=== PATIENT | male | born 1965 | race Caucasian/White ===

== ENCOUNTER 2016-12-17 16:57 | Emergency (ER) | payer BC ==
[~2016-12-17] VITALS: Ht 180.3 cm; Wt 90.0 kg
[~2016-12-17 16:57] MED LIST: ALEVE220 MG PO; AMLODIPINE10 MG PO; ASPIRIN 32325 MG/TAB PO; ASPIRIN 81M81 MG/TA2 PO; ASPIRIN E.C. 8181 MG PO; CRESTOR5 MG PO; DEXILANT30 MG PO; FLAXSEED OIL1 CAP PO; FLEXERIL 1010 MG/TAB PO; GEMFIBROZIL600 MG PO; LOPID 600M600 MG/TAB PO; LORTAB 5/500 501 TAB PO; NO HOME MEDICATIONS; NORCO 325 MG-51 TAB PO; NORCO 325 MG-7.1 TAB PO; PERCOCET 325 MG1 TA2 PO; PRILOSEC 20MG20 MG PO; PRINIVIL20 MG PO; PROMETHAZINE12.5 M5 PO; SEPTRA DS 8001 TAB PO; TRICOR 48MG48 MG PO; TRICOR145 MG PO; TYLENOL ALLERGY1 TA1 PO; ULTRAM 50MG TAB50 MG PO; ZESTRIL40 MG PO; ZOFRAN 4MG T4 MG/TAB PO; ZYRTEC 10MG10 MG PO
[2016-12-17 17:57] VITALS: BP 161/94; PULSE 91; TEMP 97.9
== END 2016-12-17 18:00 | disposition home or self-care (01) ==
LOC: COL.ER 16:57
DX: M25.562 Pain in left knee (principal); I10 Essential (primary) hypertension

== ENCOUNTER 2017-10-01 16:31 | Emergency (ER) | payer BC ==
[~2017-10-01] VITALS: Ht 180.3 cm; Wt 93.6 kg
[2017-10-01 16:43] VITALS: BP 169/95; PULSE 82; TEMP 98.1
[2017-10-01] MEDS ORDERED: COZAAR100 MG PO (16:45)
[2017-10-01] MEDS ORDERED: PEN-VEE K500 MG PO (18:35)
== END 2017-10-01 19:05 | disposition home or self-care (01) ==
LOC: COL.ER 16:31
DX: K02.9 Dental caries, unspecified (principal); R68.84 Jaw pain; I10 Essential (primary) hypertension

== ENCOUNTER 2018-02-18 13:25 | Emergency (ER) | payer BC ==
[~2018-02-18] VITALS: Ht 180.3 cm; Wt 95.5 kg
[~2018-02-18 13:25] MED LIST changes: +COZAAR100 MG PO; +PEN-VEE K500 MG PO
[2018-02-18 13:52] VITALS: BP 193/108; PULSE 76; TEMP 97.8
== END 2018-02-18 13:59 | disposition home or self-care (01) ==
LOC: COL.ER 13:25
DX: G89.29 Other chronic pain (principal); M25.511 Pain in right shoulder; I10 Essential (primary) hypertension; Z90.49 Acquired absence of other specified parts of digestive tract; Z90.89 Acquired absence of other organs; Z98.890 Other specified postprocedural states

== ENCOUNTER 2018-04-21 18:40 | Emergency (ER) | payer BC ==
[~2018-04-21] VITALS: Ht 180.3 cm; Wt 100.0 kg
[2018-04-21 18:43] VITALS: BP 178/117; TEMP 97.5
[2018-04-21] MEDS ORDERED: VENTOLIN0.09 MG IH (19:34)
[2018-04-21] MEDS ORDERED: PREDNISONE20 MG PO (20:42)
[2018-04-21] MEDS ORDERED: VOLTAREN 75 DR75 MG PO (20:42)
[2018-04-21 21:01] VITALS: PULSE 78
== END 2018-04-21 21:01 | disposition home or self-care (01) ==
LOC: COL.ER 18:40
DX: S46.911A Strain of unspecified muscle, fascia and tendon at shoulder and upper arm level, right arm, initial encounter (principal); X58.XXXA Exposure to other specified factors, initial encounter
CPT/HCPCS: J1885; J7512

== ENCOUNTER → 2018-05-16 | Outpatient (REF) ==
[~2018-05-16] MED LIST changes: +PREDNISONE20 MG PO; +VENTOLIN0.09 MG IH; +VOLTAREN 75 DR75 MG PO
== END ==
LOC: ZLAB.WCH 08:41
DX: Z01.89 Encounter for other specified special examinations (principal)

== ENCOUNTER 2018-05-20 14:47 | Emergency (ER) | payer BC ==
[~2018-05-20] VITALS: Ht 180.3 cm; Wt 95.5 kg
[2018-05-20 14:53] VITALS: TEMP 97.6
[2018-05-20 15:26] LABS: BASO # 0.1 (0.0-0.2); BASO % 0.6 % (0.0-2.0); EOS # 0.2 (0.0-0.7); GRAN # 4.4 (1.4-6.5); GRAN % 53.5 % (42.2-75.2); HEMATOCRIT 44.7 % (42.0-52.0); HEMOGLOBIN 16.3 g/dl (13.5-18.0); LYMPH # 2.8 (1.2-3.4); LYMPH % 34.8 % (20.0-51.0); MEAN CELL VOLUME 86 fl (80.0-100.0); MEAN CORPUSCULAR HEMOGLOBIN 31 pg (27.0-31.0); MEAN CORPUSCULAR HGB CONC 37 g/dl (33.0-37.0); MONO # 0.7 (0.1-0.6); MONO % 8.7 % (1.7-9.3); PLATELET COUNT 329 K/mm3 (130-400); RED BLOOD COUNT 5.21 M/mm3 (4.20-5.60); REDCELL DISTRIBUTION WIDTH-CV 12.5 % (11.5-14.5)
[2018-05-20] MEDS ORDERED: NORCO 325 MG-101 TAB PO (15:31)
[2018-05-20 15:55] LABS: ALANINE AMINOTRANSFERASE 45 U/L (21-72); ALBUMIN 4.5 gm/dL (3.5-5.0); ALKALINE PHOSPHATASE 78 U/L (50-136); ANION GAP 10 mmol/L (7-16); AST,SGOT 36 U/L (15-37); BILIRUBIN,TOTAL 0.6 mg/dL (0.0-1.0); BLOOD UREA NITROGEN 6 mg/dL (9-20); C-REACTIVE PROTEIN 0.6 mg/dL (0.0-0.9); CALCIUM 10.3 mg/dL (8.4-10.2); CARBON DIOXIDE 25 mmol/L (22-30); CHLORIDE 101 mmol/L (98-107); CREATININE, serum 0.86 mg/dL (0.66-1.25); GLUCOSE 101 mg/dL (74-106); LIPASE 38 U/L (23-300); POTASSIUM 4.1 mmol/L (3.4-5.0); SODIUM 137 mmol/L (137-145)
[2018-05-20 16:12] LABS: TROPONIN-I < 0.012 ng/mL (0.000-0.034)
[2018-05-20 16:48] VITALS: BP 141/98; PULSE 61
== END 2018-05-20 16:49 | disposition home or self-care (01) ==
LOC: COL.ER 14:47
PROVIDERS: Physician Assistant
DX: K59.00 Constipation, unspecified (principal); I10 Essential (primary) hypertension; Z90.49 Acquired absence of other specified parts of digestive tract; Z90.89 Acquired absence of other organs; Z98.890 Other specified postprocedural states
CPT/HCPCS: C9113; J1170; J2405; J7030; Q9967

== ENCOUNTER 2018-12-03 09:22 | Emergency (ER) | payer BC, OTHER ==
[~2018-12-03] VITALS: Ht 180.3 cm; Wt 102.3 kg
[~2018-12-03 09:22] MED LIST changes: +NORCO 325 MG-101 TAB PO
[2018-12-03 09:27] VITALS: BP 162/95; TEMP 98
[2018-12-03] MEDS ORDERED: XANAX .25M0.25 MG/TA PO (10:09)
[2018-12-03] MEDS ORDERED: ULTRAM 50MG TAB50 MG PO ×2 (10:10→10:17)
[2018-12-03 10:25] VITALS: PULSE 71
== END 2018-12-03 10:25 | disposition home or self-care (01) ==
LOC: COL.ER 09:22
DX: R07.89 Other chest pain (principal); I10 Essential (primary) hypertension

== ENCOUNTER 2018-12-27 10:07 | Emergency (ER) | payer BC, OTHER ==
[~2018-12-27] VITALS: Ht 180.3 cm; Wt 100.0 kg
[~2018-12-27 10:07] MED LIST changes: +XANAX .25M0.25 MG/TA PO
[2018-12-27 10:10] VITALS: BP 170/93; TEMP 98.8
[2018-12-27] MEDS ORDERED: TYLENOL 500MG500 MG PO (10:36)
[2018-12-27] MEDS ORDERED: ROXICODONE 55 MG/TAB PO (10:37)
[2018-12-27] MEDS ORDERED: MOTRIN 800800 MG/TAB PO (10:37)
[2018-12-27 10:59] LABS: BASO # 0.1 (0.0-0.2); BASO % 0.5 % (0.0-2.0); EOS # 0.1 (0.0-0.7); EOS % 0.4 % (0-4.0); GRAN % 74.7 % (42.2-75.2); HEMATOCRIT 49.6 % (42.0-52.0); HEMOGLOBIN 17.3 g/dl (13.5-18.0); LYMPH % 15.3 % (20.0-51.0); MEAN CELL VOLUME 91 fl (80.0-100.0); MEAN CORPUSCULAR HEMOGLOBIN 32 pg (27.0-31.0); MEAN CORPUSCULAR HGB CONC 35 g/dl (33.0-37.0); MEAN PLATELET VOLUME 10.2 fl (7.4-10.4); MONO # 1.2 (0.1-0.6); MONO % 8.7 % (1.7-9.3); PLATELET COUNT 233 K/mm3 (130-400); RED BLOOD COUNT 5.47 M/mm3 (4.20-5.60); REDCELL DISTRIBUTION WIDTH-CV 12.3 % (11.5-14.5)
[2018-12-27 11:09] LABS: ALBUMIN 4.5 gm/dL (3.5-5.0); BILIRUBIN,TOTAL 1.1 mg/dL (0.0-1.0); CALCIUM 9.2 mg/dL (8.4-10.2); CREATININE, serum 0.87 mg/dL (0.66-1.25); POTASSIUM 4.1 mmol/L (3.4-5.0); TOTAL PROTEIN 8.2 gm/dL (6.4-8.2)
[2018-12-27] MEDS ORDERED: NORCOELIX PO (11:52)
[2018-12-27 12:27] VITALS: PULSE 74
== END 2018-12-27 12:29 | disposition home or self-care (01) ==
LOC: COL.ER 10:07
PROVIDERS: Emergency Medicine; Physician Assistant
DX: G89.18 Other acute postprocedural pain (principal); I10 Essential (primary) hypertension; F41.9 Anxiety disorder, unspecified; Z98.890 Other specified postprocedural states; Z90.89 Acquired absence of other organs
CPT/HCPCS: J7030

== ENCOUNTER 2019-01-14 11:04 | Emergency (ER) | payer BC ==
[~2019-01-14] VITALS: Ht 180.3 cm; Wt 90.9 kg
[~2019-01-14 11:04] MED LIST changes: +MOTRIN 800800 MG/TAB PO; +NORCOELIX PO; +ROXICODONE 55 MG/TAB PO; +TYLENOL 500MG500 MG PO
[2019-01-14] MEDS ORDERED: ANTIVERT 25MG25 MG PO (12:34)
[2019-01-14 13:27] VITALS: BP 145/99; PULSE 62
== END 2019-01-14 13:34 | disposition home or self-care (01) ==
LOC: COL.ER 11:04
DX: R42 Dizziness and giddiness (principal)

== ENCOUNTER 2019-12-26 16:08 | Emergency (ER) | payer BC ==
[~2019-12-26] VITALS: Ht 180.3 cm; Wt 101.4 kg
[~2019-12-26 16:08] MED LIST changes: +ANTIVERT 25MG25 MG PO; +LIPITOR 40MG TA40 MG PO; +PEPCID 20MG TAB20 MG PO
[2019-12-26 16:17] VITALS: TEMP 98.3
[2019-12-26 17:11] LABS: BASO % 0.3 % (0.0-2.0); EOS # 0.2 (0.0-0.7); EOS % 3.5 % (0-4.0); GRAN # 2.8 (1.4-6.5); GRAN % 45.9 % (42.2-75.2); HEMATOCRIT 45.9 % (42.0-52.0); HEMOGLOBIN 16.2 g/dl (13.5-18.0); LYMPH # 2.5 (1.2-3.4); LYMPH % 41.5 % (20.0-51.0); MEAN CELL VOLUME 90 fl (80.0-100.0); MEAN CORPUSCULAR HEMOGLOBIN 32 pg (27.0-31.0); MEAN CORPUSCULAR HGB CONC 35 g/dl (33.0-37.0); MEAN PLATELET VOLUME 10.6 fl (7.4-10.4); MONO # 0.5 (0.1-0.6); MONO % 8.5 % (1.7-9.3); PLATELET COUNT 200 K/mm3 (130-400); RED BLOOD COUNT 5.13 M/mm3 (4.20-5.60)
[2019-12-26 17:21] LABS: ALANINE AMINOTRANSFERASE 30 U/L (21-72); ALBUMIN 4.4 gm/dL (3.5-5.0); ALKALINE PHOSPHATASE 63 U/L (50-136); ANION GAP 9 mmol/L (7-16); AST,SGOT 26 U/L (15-37); BILIRUBIN,TOTAL 0.7 mg/dL (0.0-1.0); BLOOD UREA NITROGEN 11 mg/dL (9-20); C-REACTIVE PROTEIN 0.7 mg/dL (0.0-0.9); CALCIUM 8.9 mg/dL (8.4-10.2); CARBON DIOXIDE 24 mmol/L (22-30); CHLORIDE 106 mmol/L (98-107); CREATININE, serum 0.82 (0.66-1.25); GLUCOSE 100 mg/dL (74-106); LIPASE 53 U/L (23-300); SODIUM 139 mmol/L (137-145); TOTAL PROTEIN 7.7 gm/dL (6.4-8.2)
[2019-12-26 17:49] LABS: TROPONIN-I < 0.012 ng/mL (0.000-0.035)
[2019-12-26 18:23] LABS: COLLECTION METHOD CLEAN CATCH
[2019-12-26 18:29] LABS: MUCOUS Present /lpf; PH 6 (5-8); SQUAMOUS EPITHELIAL None Seen /hpf; URINE APPEARANCE Clear; URINE BACTERIA None Seen /hpf; URINE BILIRUBIN Negative (NEGATIVE); URINE BLOOD Negative (NEGATIVE); URINE COLOR Yellow; URINE GLUCOSE Negative (NEGATIVE); URINE KETONE Negative (NEGATIVE); URINE LEUKOCYTE ESTERASE Negative (NEGATIVE); URINE NITRATE Negative (NEGATIVE); URINE PROTEIN(semi-quant) Negative (NEGATIVE); URINE RBC 0-2 /hpf; URINE UROBILINOGEN Negative (NEGATIVE)
[2019-12-26 19:33] VITALS: BP 133/103; PULSE 62
== END 2019-12-26 19:33 | disposition home or self-care (01) ==
LOC: COL.ER 16:08
PROVIDERS: Emergency Medicine
DX: R10.31 Right lower quadrant pain (principal); R10.11 Right upper quadrant pain; I10 Essential (primary) hypertension; E78.5 Hyperlipidemia, unspecified; F41.9 Anxiety disorder, unspecified; Z90.89 Acquired absence of other organs; Z79.82 Long term (current) use of aspirin
CPT/HCPCS: J2405; J3010; J7030; Q9967

== ENCOUNTER 2020-01-03 14:45 | Outpatient (RCR) | payer BC | END 2020-03-12 | disposition home or self-care (01) | LOC: MKS.ESL.PT | DX: H81.10 Benign paroxysmal vertigo, unspecified ear (principal); M54.5 Low back pain | CPT/HCPCS: G0283-GP ==

== ENCOUNTER → 2020-02-26 | Outpatient (CLI) | payer BC ==
[2020-02-26 19:26] LABS: ANION GAP 8 mmol/L (7-16); BLOOD UREA NITROGEN 7 mg/dL (9-20); CALCIUM 9.7 mg/dL (8.4-10.2); CARBON DIOXIDE 23 mmol/L (22-30); CHLORIDE 105 mmol/L (98-107); CREATININE, serum 0.83 (0.66-1.25); GLUCOSE 109 mg/dL (74-106); POTASSIUM 4.4 mmol/L (3.4-5.0); SODIUM 136 mmol/L (137-145)
[2020-02-26 19:39] LABS: TROPONIN-I < 0.012 ng/mL (0.000-0.035)
[2020-02-26 19:57] LABS: THYROID STIMULATING HORMONE 0.929 uIU/mL (0.465-4.680)
== END ==
LOC: ZCOL.LAB 18:25
PROVIDERS: Internal Medicine Interventional Cardiology
DX: R06.02 Shortness of breath (principal)

== ENCOUNTER → 2020-02-27 | Outpatient (CLI) | payer BC ==
[2020-02-27 11:31] LABS: HEMATOCRIT 48.4 % (42.0-52.0); HEMOGLOBIN 17.2 g/dl (13.5-18.0); MEAN CELL VOLUME 89 fl (80.0-100.0); MEAN CORPUSCULAR HEMOGLOBIN 32 pg (27.0-31.0); MEAN CORPUSCULAR HGB CONC 36 g/dl (33.0-37.0); PLATELET COUNT 264 K/mm3 (130-400); RED BLOOD COUNT 5.42 M/mm3 (4.20-5.60); REDCELL DISTRIBUTION WIDTH-CV 12.3 % (11.5-14.5)
== END ==
LOC: COL.LAB 11:04
PROVIDERS: Internal Medicine Interventional Cardiology
DX: R06.02 Shortness of breath (principal)

== ENCOUNTER 2020-03-26 12:44 | Day surgery (SDC) | payer BC ==
[2020-03-26] VITALS (8 sets, daily range): BP systolic 114–152; BP diastolic 96–110; PULSE 68–78; TEMP 98.5
[~2020-03-26] VITALS: Ht 180.3 cm; Wt 102.0 kg
[2020-03-26] MEDS ORDERED: COZAAR100 MG PO (14:14)
[2020-03-26] MEDS ORDERED: ANTIVERT 25MG25 MG PO (14:14)
[2020-03-26] MEDS ORDERED: FLONASEALLERGY NS (14:15)
[2020-03-26] MEDS ORDERED: LEXAPRO20 MG PO (14:23)
[2020-03-26] MEDS ORDERED: NITROSTAT0.4 MG/TAB SL (14:24)
[2020-03-26] MEDS ORDERED: FLEXERIL 1010 MG/TAB PO (14:24)
[2020-03-26 14:28] LABS: HEMATOCRIT 48.8 % (42.0-52.0); HEMOGLOBIN 17.4 g/dl (13.5-18.0); MEAN CELL VOLUME 89 fl (80.0-100.0); MEAN CORPUSCULAR HEMOGLOBIN 32 pg (27.0-31.0); MEAN CORPUSCULAR HGB CONC 36 g/dl (33.0-37.0); MEAN PLATELET VOLUME 10.1 fl (7.4-10.4); PLATELET COUNT 235 K/mm3 (130-400); RED BLOOD COUNT 5.47 M/mm3 (4.20-5.60); REDCELL DISTRIBUTION WIDTH-CV 12.4 % (11.5-14.5)
[2020-03-26 14:37] LABS: CALCIUM 9.4 mg/dL (8.4-10.2); CREATININE, serum 0.83 (0.66-1.25); POTASSIUM 4.2 mmol/L (3.4-5.0)
[2020-03-26 14:48] LABS: PROTHROMBIN TIME 10.9 SECONDS (9.7-12.8)
[2020-03-26 14:51] LABS: PARTIAL THROMBOPLASTIN TIME 33.6 SECONDS (26.0-37.0)
--- NOTE | 2020-03-26 14:58 | NUR ---
SEE MERGE FOR MEDICATION ADMINISTRATION TIMES AND INTRA AND POST SEDATION ASSESSMENTS.
--- NOTE | 2020-03-26 15:30 | NUR ---
Pt is back from [employer], he is awake and alert, bs report from Pao RN. TR band to rt wrist with 15 ml air. cms intact distal. pt aware of monitoring plan, call light in reach.
--- NOTE | 2020-03-26 20:51 | NUR ---
Pt did well during his recovery. I began deflating TR band at 1659 as follows: 1cc@1659, 1 cc @ 1715, 2 cc @1735, 2 cc at 1750 (pt reported site was really stinging, no bleeding or hematoma, but put 2 cc back in band), pt reported stinging and throbbing at site, requested tylenol, order obtained from Dr. Dai. 1 out at 1809, 2 out at 1825 when tylenol was given, 2 out at 1840, Pt reported site felt much better at this time, and then the remainder of air was removed at 1900. Site dressed with a bandaid, and remained free of bleeding or hematoma as he ambulated with steady gait and got dressed. IV was dc'd with cath intact, dressing was applied. I reviewed pt's dc and fu instructions with pt during his recovery and he denied any questions. pt was escorted to exit at 1930.
== END 2020-03-26 19:30 | disposition home or self-care (01) ==
LOC: COL.CAR 12:44
PROVIDERS: Internal Medicine Cardiovascular Disease
DX: I25.10 Atherosclerotic heart disease of native coronary artery without angina pectoris (principal); I10 Essential (primary) hypertension; I77.810 Thoracic aortic ectasia; I35.1 Nonrheumatic aortic (valve) insufficiency; R07.89 Other chest pain; R94.39 Abnormal result of other cardiovascular function study; Z79.82 Long term (current) use of aspirin; Z79.51 Long term (current) use of inhaled steroids; Z79.891 Long term (current) use of opiate analgesic; Z88.8 Allergy status to other drugs, medicaments and biological substances
CPT/HCPCS: J1644; J2250; J3010; Q9967

== ENCOUNTER 2021-09-30 09:08 | Emergency (ER) | payer BC ==
[~2021-09-30] VITALS: Ht 180.3 cm; Wt 100.0 kg
[~2021-09-30 09:08] MED LIST changes: +FLONASEALLERGY NS; +LEXAPRO20 MG PO; +NITROSTAT0.4 MG/TAB SL
[2021-09-30 09:18] VITALS: TEMP 98.4
[2021-09-30 10:25] LABS: BASO # 0.1 K/mm3 (0.0-0.2); BASO % 0.8 % (0.0-2.0); EOS # 0.1 K/mm3 (0.0-0.7); EOS % 1.4 % (0-4.0); GRAN # 4.5 K/mm3 (1.4-6.5); GRAN % 61.5 % (42.2-75.2); LYMPH % 27.2 % (20.0-51.0); MEAN CELL VOLUME 89 fl (80.0-100.0); MEAN CORPUSCULAR HEMOGLOBIN 32 pg (27.0-31.0); MEAN CORPUSCULAR HGB CONC 36 g/dl (33.0-37.0); MEAN PLATELET VOLUME 9.9 fl (7.4-10.4); MONO # 0.6 K/mm3 (0.1-0.6); MONO % 8.8 % (1.7-9.3); PLATELET COUNT 312 K/mm3 (130-400); RED BLOOD COUNT 4.95 M/mm3 (4.20-5.60); REDCELL DISTRIBUTION WIDTH-CV 12.3 % (11.5-14.5)
[2021-09-30 10:37] LABS: PROTHROMBIN TIME 11.1 SECONDS (9.7-12.8)
[2021-09-30 10:39] LABS: PARTIAL THROMBOPLASTIN TIME 28.6 SECONDS (26.0-37.0)
[2021-09-30 10:42] LABS: ALANINE AMINOTRANSFERASE 37 U/L (0-55); ALBUMIN 4.2 gm/dL (3.5-5.0); ALKALINE PHOSPHATASE 64 U/L (40-150); ANION GAP 6 mmol/L (7-16); AST,SGOT 27 U/L (5-34); BILIRUBIN,TOTAL 0.5 mg/dL (0.2-1.2); BLOOD UREA NITROGEN 11 mg/dL (8-26); CALCIUM 9.1 mg/dL (8.4-10.2); CARBON DIOXIDE 22 mmol/L (22-29); CHLORIDE 110 mmol/L (98-107); CREATININE, serum 0.95 mg/dL (0.72-1.25); GLUCOSE 111 mg/dL (70-99); POTASSIUM 4.4 mmol/L (3.5-4.5); SODIUM 138 mmol/L (136-145); TOTAL PROTEIN 7.4 gm/dL (6.2-8.1)
[2021-09-30 10:50] LABS: TROPONIN-I < 0.010 ng/mL (0.00-0.033)
[2021-09-30] MEDS ORDERED: NITROSTAT0.4 MG/TAB SL (13:22)
[2021-09-30 13:50] VITALS: BP 126/86; PULSE 52
== END 2021-09-30 13:50 | disposition home or self-care (01) ==
LOC: COL.ER 09:08
PROVIDERS: Family Medicine
DX: R07.89 Other chest pain (principal); Z98.61 Coronary angioplasty status; Z98.890 Other specified postprocedural states

== ENCOUNTER 2021-11-11 12:38 | Emergency (ER) | payer BC ==
[~2021-11-11] VITALS: Ht 180.3 cm; Wt 100.0 kg
[2021-11-11 13:48] VITALS: TEMP 98.1
[2021-11-11 14:56] LABS: BASO # 0.1 K/mm3 (0.0-0.2); BASO % 0.8 % (0.0-2.0); EOS # 0.2 K/mm3 (0.0-0.7); EOS % 2.9 % (0.0-4.0); GRAN # 3.9 K/mm3 (1.4-6.5); GRAN % 62.8 % (42.2-75.2); HEMATOCRIT 48.9 % (42.0-52.0); HEMOGLOBIN 17.6 g/dl (13.5-18.0); LYMPH # 1.2 K/mm3 (1.2-3.4); LYMPH % 19.2 % (20.0-51.0); MEAN CELL VOLUME 89 fl (80.0-100.0); MEAN CORPUSCULAR HEMOGLOBIN 32 pg (27-31); MEAN CORPUSCULAR HGB CONC 36 g/dl (33.0-37.0); MONO # 0.9 K/mm3 (0.1-0.6); MONO % 13.8 % (1.7-9.3); PLATELET COUNT 229 K/mm3 (130-400); RED BLOOD COUNT 5.49 M/mm3 (4.20-5.60); REDCELL DISTRIBUTION WIDTH-CV 11.9 % (11.5-14.5)
[2021-11-11 15:17] LABS: BILIRUBIN,TOTAL 0.7 mg/dL (0.2-1.2); CREATININE, serum 0.94 mg/dL (0.72-1.25); POTASSIUM 4.1 mmol/L (3.5-4.5); TOTAL PROTEIN 7.7 gm/dL (6.2-8.1)
[2021-11-11 16:21] LABS: COLLECTION METHOD CLEAN CATCH
[2021-11-11 16:33] LABS: MUCOUS Present (NOT PRESENT); PH 6 (5-8); SQUAMOUS EPITHELIAL None Seen /hpf (0-10); URINE APPEARANCE Clear (CLEAR/HAZY); URINE BACTERIA None Seen /hpf (NONE SEEN); URINE BILIRUBIN Negative (NEGATIVE); URINE BLOOD Negative (NEGATIVE); URINE COLOR Yellow (YELLOW); URINE GLUCOSE Negative (NEGATIVE); URINE KETONE Negative (NEGATIVE); URINE LEUKOCYTE ESTERASE Negative (NEGATIVE); URINE NITRATE Negative (NEGATIVE); URINE PROTEIN(semi-quant) Negative (NEGATIVE); URINE RBC 0-2 /hpf (0-2); URINE UROBILINOGEN Negative (NEGATIVE)
[2021-11-11 17:10] VITALS: BP 159/110; PULSE 76
== END 2021-11-11 17:13 | disposition home or self-care (01) ==
LOC: COL.ER 12:38
PROVIDERS: Family Medicine
DX: B34.9 Viral infection, unspecified (principal); Z20.822 Contact with and (suspected) exposure to COVID-19
CPT/HCPCS: J2405; J7120

== ENCOUNTER → 2022-06-28 | Outpatient (REF) | LOC: COL.CARD 08:29 | DX: Z01.810 Encounter for preprocedural cardiovascular examination (principal) ==

== ENCOUNTER 2023-07-31 09:58 | Day surgery (SDC) | payer BC ==
[~2023-07-31] VITALS: Ht 180.3 cm; Wt 106.9 kg
[~2023-07-31 09:58] MED LIST changes: +CARDENE 20MG CA20 M1 PO; +COREG 25MG25 MG/TAB PO; +CRESTOR20 MG PO; +IMDUR 30MG30 MG/TAB PO; +MOBIC15 MG PO; +PLAVIX 75MG TAB75 MG PO; +PROAIR HFA0.09 MG/AC IH; +ZOFRAN ODT4 MG PO
[2023-07-31] MEDS ORDERED: ULTRAM 50MG TAB50 MG PO (10:44)
[2023-07-31] MEDS ORDERED: ALLEGRA 180MG180 MG PO (10:44)
[2023-07-31 11:06] VITALS: BP 130/100; PULSE 58; TEMP 97.8
--- NOTE | 2023-07-31 11:14 | NUR ---
PATIENT AMBULATED TO BAY 6 WITH STEADY GAIT. ALERT AND ORIENTED X4. PATIENT STATED UNDERSTANDING OF PROCEDURE. CONSENTS SIGNED. ASSESSMENT COMPLETED. 18G IV STARTED IN LEFT HAND BY AISHA ANDREWS. LR INFUSING WITHOUT DIFFICULTIES. B/P 130/100. [employer] NOTIFIED. WARM BLANKET PROVIDED. NO FURTHER NEEDS NOTED. RESTING IN COT. CALL LIGHT IN REACH.
[2023-07-31] MEDS ORDERED: NORCO 325 MG-51 TAB PO (12:06)
[2023-07-31] MEDS ORDERED: CEPHALEXIN500 M1 PO (12:06)
[2023-07-31 12:55] VITALS: BP 153/88; PULSE 74; TEMP 98.2
--- NOTE | 2023-07-31 12:55 | NUR ---
1255 PATIENT RETURNS TO ROOM 6 VIA CART. PATIENT IS ALERT AND ORIENTED. RESPIRATIONS EVEN AND UNLABORED, ON ROOM AIR. VITAL SIGNS OBTAINED. PATIENT STATES PAIN IS 3/10 AND TOLERABLE. GUDELIA WRAP PRESENT TO RIGHT KNEE, CDI. PEDAL PULSES EQUAL AND STRONG. PATIENT REQUESTED WATER AND JELLO. NO DIFFICULTIES SWALLOWING. PATIENT FRIEND IN ROOM. 1415 PATIENT STATES THAT HIS PAIN HAS INCREASED TO A 5/10 AND REQUESTED PRN PAIN MEDICATION. THIS NURSE GAVE PATIENT PO PRN MEDICATION PER MD ORDER. 1420 THIS NURSE DISCONTINUED IV FROM LEFT HAND WITH NO DIFFICULTIES. IV CATHETER INTACT. 1425 THIS NURSE REVIEWED DISCHARGE INSTRUCTIONS WITH PATIENT. PATIENT VERBALIZED UNDERSTANDING. 1445 PATIENT DISCHARGED FROM UNIT VIA WHEELCHAIR IN STABLE CONDITION.
[2023-07-31 13:10] VITALS: BP 145/97; PULSE 65
[2023-07-31 13:13] VITALS: TEMP 98
[2023-07-31 13:25] VITALS: BP 162/100; PULSE 76
[2023-07-31 13:40] VITALS: BP 168/99; PULSE 80
== END 2023-07-31 14:45 | disposition home or self-care (01) ==
LOC: SDCO 09:58
DX: M23.321 Other meniscus derangements, posterior horn of medial meniscus, right knee (principal); M23.361 Other meniscus derangements, other lateral meniscus, right knee; Z85.818 Personal history of malignant neoplasm of other sites of lip, oral cavity, and pharynx
CPT/HCPCS: J0171; J0360; J0665; J0690; J1100; J1170; J1885; J2405; J2704; J3010; J7120

== ENCOUNTER → 2023-11-14 | Emergency (ER) | payer BC ==
[~2023-11-14] VITALS: Ht 180.3 cm; Wt 100.0 kg
[~2023-11-14] MED LIST changes: +ALLEGRA 180MG180 MG PO; +CEPHALEXIN500 M1 PO
[2023-11-14 22:40] LABS: BASO # 0.1 K/mm3 (0.0-0.2); EOS # 0.3 K/mm3 (0.0-0.7); EOS % 2.6 % (0.0-4.0); GRAN # 7.5 K/mm3 (1.4-6.5); GRAN % 76.6 % (42.2-75.2); HEMATOCRIT 43.5 % (42.0-52.0); HEMOGLOBIN 15.4 g/dl (13.5-18.0); LYMPH # 0.9 K/mm3 (1.2-3.4); LYMPH % 9.5 % (20.0-51.0); MEAN CELL VOLUME 90 fl (80.0-100.0); MEAN CORPUSCULAR HEMOGLOBIN 32 pg (27-31); MEAN CORPUSCULAR HGB CONC 35 g/dl (33.0-37.0); MEAN PLATELET VOLUME 10.1 fl (7.4-10.4); MONO # 0.9 K/mm3 (0.1-0.6); MONO % 9.7 % (1.7-9.3); PLATELET COUNT 252 K/mm3 (130-400); RED BLOOD COUNT 4.85 M/mm3 (4.20-5.60); REDCELL DISTRIBUTION WIDTH-CV 11.9 % (11.5-14.5)
[2023-11-14 23:00] LABS: ALANINE AMINOTRANSFERASE 29 U/L (0-55); ALBUMIN 3.9 gm/dL (3.5-5.0); ALKALINE PHOSPHATASE 76 U/L (40-150); ANION GAP 13 mmol/L (7-16); AST,SGOT 25 U/L (5-34); BILIRUBIN,TOTAL 0.6 mg/dL (0.2-1.2); BLOOD UREA NITROGEN 9 mg/dL (8-26); CALCIUM 9.4 mg/dL (8.4-10.2); CARBON DIOXIDE 20 mmol/L (22-29); CHLORIDE 103 mmol/L (98-107); CREATININE, serum 1.14 mg/dL (0.72-1.25); GLUCOSE 125 mg/dL (70-99); LIPASE 13 U/L (8-78); POTASSIUM 3.9 mmol/L (3.5-4.5); SODIUM 136 mmol/L (136-145); TOTAL PROTEIN 7.2 gm/dL (6.2-8.1)
[2023-11-14 23:05] LABS: PROTHROMBIN TIME 10.9 SECONDS (9.7-12.8)
[2023-11-14 23:08] LABS: PARTIAL THROMBOPLASTIN TIME 29.8 SECONDS (26.0-37.0)
[2023-11-14 23:09] LABS: D-DIMER < 200.00 ng/mLDDu (200-230)
[2023-11-14 23:53] LABS: TROPONIN-I < 0.010 ng/mL (0.00-0.033)
[2023-11-15 02:27] VITALS: BP 153/102; PULSE 78
== END ==
LOC: COL.ER 22:22
PROVIDERS: Emergency Medicine
DX: R07.89 Other chest pain (principal); R06.00 Dyspnea, unspecified; I10 Essential (primary) hypertension; E66.01 Morbid (severe) obesity due to excess calories; Z79.82 Long term (current) use of aspirin
CPT/HCPCS: J2270; J2405; J7030; Q9967

== ENCOUNTER 2024-01-29 20:10 | Emergency (ER) | payer BC ==
[~2024-01-29] VITALS: Ht 177.8 cm; Wt 100.0 kg
[2024-01-29] MEDS ORDERED: Ketorolac 30 MG/ML VIAL IM ONE (20:45)
[2024-01-29 21:44] VITALS: BP 157/95; PULSE 78
== END 2024-01-29 21:45 | disposition home or self-care (01) ==
LOC: COL.ER 20:10
DX: R51.9 Headache, unspecified (principal); H80.93 Unspecified otosclerosis, bilateral; E66.9 Obesity, unspecified; Z86.011 Personal history of benign neoplasm of the brain; Z68.31 Body mass index [BMI] 31.0-31.9, adult; Z88.6 Allergy status to analgesic agent
CPT/HCPCS: J0780; J1885

== ENCOUNTER 2024-03-25 21:46 | Emergency (ER) | payer OTHER ==
[~2024-03-25] VITALS: Ht 177.8 cm; Wt 100.0 kg
[2024-03-25 21:56] VITALS: TEMP 98.2
[2024-03-25 22:23] LABS: BASO # 0.1 K/mm3 (0.0-0.2); BASO % 0.8 % (0.0-2.0); EOS # 0.2 K/mm3 (0.0-0.7); EOS % 1.7 % (0.0-4.0); GRAN # 6.1 K/mm3 (1.4-6.5); GRAN % 66.8 % (42.2-75.2); HEMATOCRIT 43.7 % (42.0-52.0); HEMOGLOBIN 15.7 g/dl (13.5-18.0); LYMPH % 21.8 % (20.0-51.0); MEAN CELL VOLUME 87 fl (80.0-100.0); MEAN CORPUSCULAR HEMOGLOBIN 31 pg (27-31); MEAN CORPUSCULAR HGB CONC 36 g/dl (33.0-37.0); MEAN PLATELET VOLUME 9.8 fl (7.4-10.4); MONO # 0.8 K/mm3 (0.1-0.6); MONO % 8.6 % (1.7-9.3); PLATELET COUNT 266 K/mm3 (130-400); RED BLOOD COUNT 5.01 M/mm3 (4.20-5.60); REDCELL DISTRIBUTION WIDTH-CV 12.5 % (11.5-14.5)
[2024-03-25 22:40] LABS: ALBUMIN 3.8 g/dL (3.4-4.8); BILIRUBIN,TOTAL 0.4 mg/dL (0.2-1.2); CALCIUM 9.7 mg/dL (8.4-10.2); CREATININE, serum 1.03 mg/dL (0.72-1.25); POTASSIUM 3.6 mEq/L (3.5-4.5); TOTAL PROTEIN 7.1 g/dl (6.2-8.1)
[2024-03-25 22:46] LABS: TROPONIN-I 0.015 ng/mL (0.00-0.033)
[2024-03-25 23:06] VITALS: BP 161/107; PULSE 62
== END 2024-03-25 23:06 | disposition home or self-care (01) ==
LOC: COL.ER 21:46
PROVIDERS: Nurse Practitioner Primary Care
DX: R51.9 Headache, unspecified (principal); E66.9 Obesity, unspecified; Z68.31 Body mass index [BMI] 31.0-31.9, adult

== ENCOUNTER 2024-04-19 14:06 | Observation (INO) | payer BC | END 2024-04-22 12:20 | disposition home or self-care (01) | LOC: COL.ER 14:06 → MEDICAL 22:15 | PROVIDERS: ADMIT Internal Medicine | DX: R07.9 Chest pain, unspecified (principal); I10 Essential (primary) hypertension; Z79.899 Other long term (current) drug therapy; Z79.82 Long term (current) use of aspirin ==

== ENCOUNTER 2024-06-18 11:38 | Emergency (ER) | payer BC ==
[~2024-06-18] VITALS: Ht 172.7 cm; Wt 97.7 kg
[2024-06-18 11:52] VITALS: TEMP 97.8
[2024-06-18 13:58] LABS: BASO # 0.1 K/mm3 (0.0-0.2); BASO % 1.1 % (0.0-2.0); EOS # 0.5 K/mm3 (0.0-0.7); EOS % 6.4 % (0.0-4.0); GRAN # 5.1 K/mm3 (1.4-6.5); GRAN % 71.6 % (42.2-75.2); HEMATOCRIT 44.2 % (42.0-52.0); HEMOGLOBIN 15.4 g/dl (13.5-18.0); LYMPH # 1.1 K/mm3 (1.2-3.4); LYMPH % 15.9 % (20.0-51.0); MEAN CELL VOLUME 91 fl (80.0-100.0); MEAN CORPUSCULAR HEMOGLOBIN 32 pg (27-31); MEAN CORPUSCULAR HGB CONC 35 g/dl (33.0-37.0); MEAN PLATELET VOLUME 10.2 fl (7.4-10.4); MONO # 0.4 K/mm3 (0.1-0.6); MONO % 4.9 % (1.7-9.3); PLATELET COUNT 273 K/mm3 (130-400); RED BLOOD COUNT 4.87 M/mm3 (4.20-5.60); REDCELL DISTRIBUTION WIDTH-CV 12.3 % (11.5-14.5)
[2024-06-18 14:06] LABS: ALANINE AMINOTRANSFERASE 13 U/L (0-55); ALBUMIN 3.7 g/dL (3.4-4.8); ALKALINE PHOSPHATASE 70 U/L (40-150); ANION GAP 10 mmol/L (7-16); AST,SGOT 12 U/L (5-34); BILIRUBIN,TOTAL 0.5 mg/dL (0.2-1.2); BLOOD UREA NITROGEN 12 mg/dL (8-26); CALCIUM 9.6 mg/dL (8.4-10.2); CHLORIDE 107 mEq/L (98-107); GLUCOSE 253 mg/dL (70-99); POTASSIUM 4.4 mEq/L (3.5-4.5); SODIUM 138 mEq/L (136-145)
[2024-06-18 14:13] LABS: TROPONIN-I < 0.010 ng/mL (0.00-0.033)
[2024-06-18] MEDS ORDERED: Morphine 4 MG/ML VIAL IV ONE (14:45)
[2024-06-18] MEDS ORDERED: Ondansetron 4 MG/2 ML VIAL IV ONE (14:45)
[2024-06-18] MEDS ORDERED: Ketorolac 15 MG/ML VIAL IV ONE (15:00)
[2024-06-18 15:30] VITALS: BP 133/95; PULSE 54
== END 2024-06-18 15:38 | disposition home or self-care (01) ==
LOC: COL.ER 11:38
PROVIDERS: Personal Emergency Response Attendant
DX: R06.00 Dyspnea, unspecified (principal)
CPT/HCPCS: J1885

== ENCOUNTER 2024-09-03 18:45 | Emergency (ER) | payer BC ==
[~2024-09-03] VITALS: Ht 180.3 cm; Wt 96.4 kg
[2024-09-03 18:50] VITALS: TEMP 98
[2024-09-03 19:46] LABS: BASO # 0.1 K/mm3 (0.0-0.2); BASO % 1.3 % (0.0-2.0); EOS # 0.5 K/mm3 (0.0-0.7); EOS % 5.7 % (0.0-4.0); GRAN # 5.5 K/mm3 (1.4-6.5); GRAN % 58.1 % (42.2-75.2); HEMATOCRIT 43.9 % (42.0-52.0); HEMOGLOBIN 15.6 g/dl (13.5-18.0); LYMPH # 2.5 K/mm3 (1.2-3.4); LYMPH % 25.9 % (20.0-51.0); MEAN CELL VOLUME 89 fl (80.0-100.0); MEAN CORPUSCULAR HEMOGLOBIN 32 pg (27-31); MEAN CORPUSCULAR HGB CONC 36 g/dl (33.0-37.0); MEAN PLATELET VOLUME 9.9 fl (7.4-10.4); MONO # 0.8 K/mm3 (0.1-0.6); MONO % 8.7 % (1.7-9.3); PLATELET COUNT 265 K/mm3 (130-400); RED BLOOD COUNT 4.92 M/mm3 (4.20-5.60)
[2024-09-03 20:00] LABS: ALANINE AMINOTRANSFERASE 15 U/L (0-55); ALBUMIN 4.1 g/dL (3.4-4.8); ALKALINE PHOSPHATASE 64 U/L (40-150); ANION GAP 8 mmol/L (7-16); AST,SGOT 17 U/L (5-34); BILIRUBIN,TOTAL 0.5 mg/dL (0.2-1.2); BLOOD UREA NITROGEN 11 mg/dL (8-26); CALCIUM 9.3 mg/dL (8.4-10.2); CHLORIDE 105 mEq/L (98-107); CREATININE, serum 0.98 mg/dL (0.72-1.25); GLUCOSE 95 mg/dL (70-99); MAGNESIUM 2.1 mg/dL (1.6-2.6); POTASSIUM 4.8 mEq/L (3.5-4.5); SODIUM 138 mEq/L (136-145); TOTAL PROTEIN 7.1 g/dl (6.2-8.1)
[2024-09-03 20:02] LABS: INR 1.1 (0.8-3.0); PROTHROMBIN TIME 11.5 SECONDS (9.7-12.8)
[2024-09-03 20:09] LABS: TROPONIN-I < 0.010 ng/mL (0.00-0.033)
[2024-09-03] MEDS ORDERED: dexAMETHasone 10 MG/ML VIAL IV ONE (20:45)
[2024-09-03] MEDS ORDERED: ZITHROMAX Z PA250 MG PO (20:45)
[2024-09-03] MEDS ORDERED: Azithromycin 250 MG TAB PO ONE (20:45)
[2024-09-03 20:46] VITALS: BP 128/92; PULSE 56
== END 2024-09-03 20:59 | disposition home or self-care (01) ==
LOC: COL.ER 18:45
PROVIDERS: Family Medicine
DX: R06.02 Shortness of breath (principal); J98.4 Other disorders of lung
CPT/HCPCS: J1100